=== PATIENT | female | born 2000 | race African-American/Black ===

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

== ENCOUNTER 2021-06-05 13:14 | Emergency (ER) | payer SELFPAY ==
[~2021-06-05] VITALS: Ht 167.6 cm; Wt 48.5 kg
[~2021-06-05 13:14] MED LIST changes: +ACET-704 PO; +ONDA4TAB10 SL
[2021-06-05 13:40] VITALS: BP 140/67
== END 2021-06-05 14:00 | disposition left against medical advice (07) ==
LOC: ER 13:14
DX: R10.9 Unspecified abdominal pain (principal); R11.10 Vomiting, unspecified; Z53.21 Procedure and treatment not carried out due to patient leaving prior to being seen by health care provider

== ENCOUNTER 2021-07-12 23:35 | Emergency (ER) | payer SELFPAY | END 2021-07-13 02:00 | disposition left against medical advice (07) | LOC: ER 23:35 | DX: R11.2 Nausea with vomiting, unspecified (principal); R19.7 Diarrhea, unspecified; Z53.21 Procedure and treatment not carried out due to patient leaving prior to being seen by health care provider ==